=== PATIENT | male | born 1955 | race Caucasian/White ===

== ENCOUNTER → 2016-08-22 | Outpatient (CLI) | payer OTHER ==
[~2016-08-22] MED LIST: ALBUT/IPRATROP 3MG/0.5MG NEB 3 ML VIAL INH ONE; AMLO10TA2 PO; ASPI81TA28 PO; ATOR-26 PO; CARV25TA2 PO; CLOP1TAB15 PO; DICL1GEL12 TOP; FURO-85 PO; HYDR-4079 PO; HYDROCODONE APAP PO; LISI-725 PO; TEMA30CA4 PO
--- NOTE | 2016-08-22 09:29 | DIAGNOSTIC IMAGING REPORT ---
MRI LEFT SHOULDER NO CONTRAST CLINICAL HISTORY: L SHOULDER PAIN COMPARISON STUDY: No previous studies for comparison. FINDINGS: Imaging was performed the sagittal, coronal, and axial planes. There are no areas of marrow replacement to indicate occult fracture or neoplasm. There is a joint effusion with several loose bodies. There are postsurgical changes of a presumed prior rotator cuff repair. Soft tissue anchors are visualized within the humeral head. There is moderate ferromagnetic artifact. The bicipital tendon appears intact. There is supraspinatus tendinopathy. There is a full-thickness tear of the supraspinatus/infraspinatus tendinous insertion. There is a slight wavy appearance of the supraspinous tendon but significant tendinous retraction is not present. There is infraspinatus muscular atrophy. There is degenerative irregularity of the glenoid labrum. IMPRESSION: Full-thickness rotator cuff tear with atrophy of the infraspinatus muscle. No evidence of significant tendinous retraction. Postsurgical changes with extensive ferromagnetic artifact. Electronically signed by: Al Mcpherson M.D. 08/22/2016 9:27 AM Dictated Date/Time: 08/22/2016 9:18 AM
== END | disposition home or self-care (01) ==
LOC: C.MRIBC 08:15
PROVIDERS: ATTEND Orthopaedic Surgery
DX: M75.102 Unspecified rotator cuff tear or rupture of left shoulder, not specified as traumatic (principal); M62.512 Muscle wasting and atrophy, not elsewhere classified, left shoulder

== ENCOUNTER → 2016-08-22 | Outpatient (CLI) | payer OTHER ==
[~2016-08-22] VITALS: Ht 157.5 cm; Wt 84.2 kg
[~2016-08-22] MED LIST changes: -ALBUT/IPRATROP 3MG/0.5MG NEB 3 ML VIAL INH ONE
[2016-08-22 13:40] VITALS: Ht 157.5 cm; Wt 84.2 kg
--- NOTE | 2016-08-22 14:29 | PAT Medication Instructions ---
Service Date Aug 22, 2016. 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 Instructions For Your Scheduled Surgery - Instructions per Cardiology: Clopidogrel (Plavix), 75 MG PO QAM Per pt, last dose taken 08/19/16 - Hold the following medications 24 hours prior to surgery: Diclofenac Sodium (Topical) (Voltaren 1% Top Gel), 1 DOSE TOP DAILY - Take the following medications the morning of surgery with a sip of water OTHERWISE NOTHING TO EAT OR DRINK AFTER MIDNIGHT: Aspirin (Aspirin Ec), 81 MG PO QAM Carvedilol (Coreg), 25 MG PO BID [Hydrocodone Apap], 1 TAB PO QID PRN (may take if needed up to 4 hours prior to surgery) - Take the following medications as scheduled the night before surgery: Temazepam (Restoril), 30 MG PO HS Atorvastatin (Lipitor), 80 MG PO HS Furosemide (Lasix), 20 MG PO QPM Carvedilol (Coreg), 25 MG PO BID [Hydrocodone Apap], 1 TAB PO QID PRN - Do Not take the following medications the night before surgery: Lisinopril (Zestril), 20 MG PO QPM If you have any questions please call us at [phone] or [phone] or [phone]
[2016-08-22 14:50] LABS: BASO % 0.3 %; BASO ABS # 0.02 K/uL (0-0.2); COMPLETE YES; EOS % 1.6 %; HEMATOCRIT 36.1 % (42-52); IG% 0.2 %; LYMPH % 21.1 %; LYMPH ABS # 1.22 K/uL (1.2-3.4); MEAN CELL VOLUME 87.4 fL (80-100); MEAN CORPUSCULAR HEMOGLOBIN 30.3 pg (25-34); MEAN CORPUSCULAR HGB CONC 34.6 g/dl (32-36); MEAN PLATELET VOLUME 9.2 fL (7.4-10.4); MONO % 7.5 %; NEUT % 69.3 %; PLATELET COUNT 183 K/uL (130-400); RED BLOOD COUNT 4.13 M/uL (4.7-6.1); WHITE BLOOD COUNT 5.77 K/uL (4.8-10.8)
[2016-08-22 15:03] LABS: BUN/CREATININE RATIO 11.3 (10-20); CALCIUM 8.7 mg/dl (8.5-10.1); CREATININE 1.4 mg/dl (0.60-1.40); POTASSIUM 3.6 mmol/L (3.5-5.1)
[2016-08-22 15:25] LABS: PARTIAL THROMBOPLASTIN RATIO 1.1; PROTHROMBIN TIME (PATIENT) 10.9 SECONDS (9.0-12.0)
== END | disposition home or self-care (01) ==
LOC: C.LAB 08:00 → EDSTATUS 08-26 14:44
PROVIDERS: ATTEND Orthopaedic Surgery
DX: M75.102 Unspecified rotator cuff tear or rupture of left shoulder, not specified as traumatic (principal); Z01.812 Encounter for preprocedural laboratory examination; Z01.810 Encounter for preprocedural cardiovascular examination

== ENCOUNTER 2017-01-13 06:14 | Inpatient (IN) | payer OTHER ==
[2016-11-28 10:22] VITALS: BMI 31.0
[2016-11-28 10:25] LABS: BASO % 0.6 %; BASO ABS # 0.04 K/uL (0-0.2); COMPLETE YES; EOS % 1.8 %; HEMATOCRIT 38.2 % (42-52); IG% 0.2 %; LYMPH % 26.9 %; LYMPH ABS # 1.66 K/uL (1.2-3.4); MEAN CELL VOLUME 87.8 fL (80-100); MEAN CORPUSCULAR HEMOGLOBIN 30.1 pg (25-34); MEAN CORPUSCULAR HGB CONC 34.3 g/dl (32-36); MEAN PLATELET VOLUME 9.5 fL (7.4-10.4); MONO % 7.6 %; NEUT % 62.9 %; PLATELET COUNT 161 K/uL (130-400); RED BLOOD COUNT 4.35 M/uL (4.7-6.1); WHITE BLOOD COUNT 6.17 K/uL (4.8-10.8)
[2016-11-28 10:36] LABS: PARTIAL THROMBOPLASTIN RATIO 1.1; PROTHROMBIN TIME (PATIENT) 10.8 SECONDS (9.0-12.0)
[2016-11-28 10:42] LABS: URINE APPEARANCE CLEAR (CLEAR); URINE BILIRUBIN NEG (NEG); URINE COLOR YELLOW; URINE NITRITE NEG (NEG); URINE PH 5.5 (4.5-7.5); UROBILINOGEN NEG (NEG)
[2016-11-28 10:43] LABS: MANUAL MICROSCOPIC REQUIRED? NO; REVIEW REQ? NO
--- NOTE | 2016-11-28 10:54 | PAT Medication Instructions ---
Service Date Nov 28, 2016. Current Home Medication List Aspirin (Aspirin Ec), 81 MG PO QAM Atorvastatin (Lipitor), 80 MG PO HS Carvedilol (Coreg), 25 MG PO BID Clopidogrel (Plavix), 75 MG PO QAM Diclofenac Sodium (Topical) (Voltaren 1% Top Gel), 1 DOSE TOP DAILY PRN for Pain Furosemide (Lasix), 20 MG PO QAM Hydrocodone/Acetaminophen 10MG/325MG ([place] 10MG/325MG), 1 TAB PO Q4H PRN for Pain Lisinopril (Zestril), 20 MG PO BID Temazepam (Restoril), 30 MG PO HS Medication Instructions For Your Scheduled Surgery - Hold the following medications 7 days prior to surgery as instructed by Cardiology: Clopidogrel (Plavix), 75 MG PO QAM - Hold the following medications 24 hours prior to surgery: Lisinopril (Zestril), 20 MG PO BID Diclofenac Sodium (Topical) (Voltaren 1% Top Gel), 1 DOSE TOP DAILY PRN for Pain - Hold the following medications the morning of surgery: Furosemide (Lasix), 20 MG PO QAM - Take the following medications the morning of surgery with a sip of water: Carvedilol (Coreg), 25 MG PO BID Aspirin (Aspirin Ec), 81 MG PO QAM Hydrocodone/Acetaminophen 10MG/325MG ([place] 10MG/325MG), 1 TAB PO Q4H PRN for Pain (may take if needed up to 4 hours prior to surgery) - Take the following medications as scheduled the night before surgery: Carvedilol (Coreg), 25 MG PO BID Temazepam (Restoril), 30 MG PO HS Hydrocodone/Acetaminophen 10MG/325MG ([place] 10MG/325MG), 1 TAB PO Q4H PRN for Pain Atorvastatin (Lipitor), 80 MG PO HS If you have any questions please call us at [phone] or [phone] or [phone]
[2016-11-28 12:36] LABS: BUN/CREATININE RATIO 12.4 (10-20); CREATININE 1.4 mg/dl (0.60-1.40); POTASSIUM 3.9 mmol/L (3.5-5.1)
--- NOTE | 2017-01-12 08:28 | HISTORY & PHYSICAL EXAMINATION ---
DATE OF ADMISSION: 01/13/2017 CHIEF COMPLAINT: Left recurrent rotator cuff tear. HISTORY PRESENT ILLNESS: Anant is a pleasant 61-year-old male who has been having left shoulder pain for over a year. He was originally treated by Dr. Cheng a year ago. He had an open rotator cuff repair, but since then has not done well with regards to his shoulder. He continues to have pain, discomfort and weakness. Repeat MRI did show possible re-rupture of the infraspinatus as well as biceps tendinitis and AC joint arthritis. After failing extensive conservative treatment, he elected to undergo a revision shoulder surgery. He has also been complaining of a several month history of triggering of his left ring finger. It mostly triggers in the morning and it can become quite bothersome. PAST MEDICAL HISTORY: Significant for heart disease, hypertension. PAST SURGICAL HISTORY: Significant for cardiac stent placement and left shoulder open rotator cuff repair a year ago and elbow surgery. ALLERGIES: None. MEDICATIONS: Include hydrochlorothiazide daily, lisinopril 20 mg twice a day, hydrocodone as needed for pain, atorvastatin 80 mg daily, temazepam 30 mg at bedtime, Plavix 75 mg daily, carvedilol 25 mg daily, Lyrica 75 mg twice a day, Lasix 20 mg daily. FAMILY HISTORY: Noncontributory. SOCIAL HISTORY: He is , never drinks. He has a 55 year history of a pack a day. REVIEW OF SYSTEMS: He complains of left shoulder pain. All other pertinent review of systems are negative. PHYSICAL EXAMINATION: GENERAL: Awake, alert and oriented x3. He is in no apparent distress. He is very pleasant. HEAD, EYES, EARS, NOSE, AND THROAT: Pupils equal, round and reactive to light. Extraocular motions are intact. Oral mucosa is pink and moist. HEART: Regular rate per radial pulse. LUNGS: [place] symmetrically bilaterally with no audible breath sounds. ABDOMEN: Soft, nontender, nondistended. MUSCULOSKELETAL: On physical examination of the shoulder, he wears a sling because of the pain. He has decreased range of motion with about 80 degrees of forward elevation, 60 degrees of abduction. He has 4/5 strength with full can testing and 3/5 strength with external rotation, pain over the subacromial space and over the biceps as well as significant tenderness over the AC joint. He is also having some triggering of his left ring finger. IMAGING: MRI of the shoulder does show a possible re-rupture of the infraspinatus tendon. There is also arthritis of the AC joint and tendinopathy of the long head of the biceps tendon. IMPRESSION: 1. Re-rupture of the infraspinatus with AC joint arthritis and biceps tendinopathy of the left shoulder. 2. Left ring finger triggering. PLAN: Will proceed with a left shoulder arthroscopy to include possible revision cuff repair, distal clavicle resection and open biceps tenodesis. Will also do a small left trigger finger release. Postoperatively, he will be placed in an arm sling and started on some pain medications and discharged to home.
[~2017-01-13] VITALS: Ht 160 cm; Wt 80.2 kg
[2017-01-13] VITALS (17 sets, daily range): BP systolic 149–206; BP diastolic 88–134; PULSE 52–84; TEMP 36.4–36.9; O2SAT 94–100; Ht 160 cm; Wt 80.2 kg
[~2017-01-13 06:14] MED LIST changes: +ACETAMINOPHEN 500 MG TAB PO SCH; -AMLO10TA2 PO; +CEFAZOLIN 2000 MG/60 ML D5W 60 ML IV SCH; -HYDROCODONE APAP PO; +LACTATED RINGER'S 1000ML 1,000 ML IV SCH
--- NOTE | 2017-01-13 06:43 | History & Physical Bridge Note ---
H&P Re-Evaluation Bridge Note: I have examined the patient, reviewed the History & Physical and in the interval since the performance of the History & Physical I have noted the following changes of clinical significance: No changes noted
[2017-01-13] MEDS ORDERED: ROPIVACAINE 0.5% 5 MG/ML 30 ML VIAL ONE (07:15)
[2017-01-13] MEDS ORDERED: MIDAZOLAM HCL 1 MG/ML 2ML VIAL ONE ×2 (08:09→09:05)
[2017-01-13] MEDS ORDERED: FENTANYL CITRATE INJ 50 MCG/1 ML 2 ML VIAL ONE ×2 (08:09→09:05)
[2017-01-13] MEDS ORDERED: ALBUT/IPRATROP 3MG/0.5MG NEB 3 ML VIAL INH ONE (09:00)
[2017-01-13] MEDS ORDERED: EpHEDrine SULFATE INJ 50 MG/ML AMP IV PRN (09:15)
[2017-01-13] MEDS ORDERED: FENTANYL CITRATE INJ 50 MCG/1 ML 2 ML VIAL IV PRN (09:15)
[2017-01-13] MEDS ORDERED: ONDANSETRON INJ 2 MG/ML 2 ML VIAL IV PRN ×3 (09:15→14:15)
[2017-01-13] MEDS ORDERED: ACETAMINOPHEN 1000 MG/100 ML IV IV ONE (09:15)
[2017-01-13] MEDS ORDERED: ATROPINE SULFATE 0.1 MG/ML 5ML SYR IV PRN (09:15)
[2017-01-13] MEDS ORDERED: BUPIVACAINE/EPINEPHRINE 0.5% MPF 1:200,000 10 ML VIAL ONE ×2 (09:32)
[2017-01-13] MEDS ORDERED: EpINEphrine HCL INJ 1 MG/ML 5ML SYRINGE ONE (09:32)
[2017-01-13] MEDS ORDERED: ETOMIDATE 2 MG/ML 20 ML VIAL IV ONE (09:57)
[2017-01-13] MEDS ORDERED: ROCURONIUM BROMIDE 10 MG/ML 5 ML VIAL IV ONE (11:03)
[2017-01-13] MEDS ORDERED: GLYCOPYRROLATE INJ 0.2 MG/ML VIAL ONE (11:04)
[2017-01-13] MEDS ORDERED: NEOSTIGMINE METHYLSULFATE 5 MG/5 ML SYR ONE (11:04)
[2017-01-13] MEDS ORDERED: SODIUM CHLORIDE 0.9% 1000ML 1,000 ML IV SCH (11:49)
--- NOTE | 2017-01-13 11:49 | Discharge Instructions ---
Discharge Instructions Date of Service Jan 13, 2017. Admission Reason for Admission: Left Shoulder Rotator Cuff Tear, Ac Joint Arthriti Discharge Discharge Diagnosis / Problem: SAME ABOVE Discharge Goals Goal(s): Decrease discomfort, Improve function Activity Recommendations Activity Limitations: as noted below Lifting Limitations: gradually increase as tolerated Exercise/Sports Limitations: gradually increase as tolerated Shower/Bathe: tomorrow Driving or Machine Use: ONCE OUT OF THE SLING . Instructions / Follow-Up Instructions / Follow-Up MEDICATIONS: * Resume previous medications unless instructed otherwise by your surgeon. * Always take pain medication on a full stomach or with food to avoid upset stomach. * Do not drink alcohol or drive while taking narcotics. * Ibuprofen or Tylenol may be taken if narcotic not needed. SPECIAL CARE INSTRUCTIONS: __ None _X_ Keep extremity elevated and iced x 48 hours; apply ice 20-30 minutes 8-10 times/day. May remove at night. _X_ Sling (WEAR FOR COMFORT ONLY) __24 hrs/day __ Remove at night __ Shoulder Immobilizer __ 24 hrs/day __ Remove at night _X_ Dressing __ Maintain until seen in office, may shower with plastic over site _X_ Remove dressings in 24-48 hours and then may shower _X_ Cover incisions with band-aids after showering _X_ Do not remove steri-strips Call physician if chills or temperature rises above 102 degrees or pain unrelieved by prescribed pain medications at . . Current Hospital Diet Patient's current hospital diet: Discharge Diet Recommended Diet: Regular Diet Fluid Restriction: None Procedures Procedures Performed: Trigger Finger Release Left Ring Finger (Procedure #1), Left Shoulder: Arthroscopy, Extensive Debridement, Open biceps tenodesis (Procedure #2) Pending Studies Studies pending at discharge: no Work Instructions Return To Work: after follow-up Medical Emergencies . Who to Call and When: Medical Emergencies: If at any time you feel your situation is an emergency, please call 911 immediately. . Non-Emergent Contact Non-Emergency issues call your: Primary Care Provider Call Non-Emergent contact if: you have a fever, temperature is above 101.5 . "Provider Documentation" section prepared by Dylan Charles. . VTE Core Measure Inpt VTE Proph given/why not?: Treatment not indicated
--- NOTE | 2017-01-13 11:59 | OPERATIVE REPORT ---
DATE OF OPERATION: 01/13/2017 PREOPERATIVE DIAGNOSES: 1. Scar tissue formation, biceps tendinopathy and possible re-rupture of the rotator cuff. 2. Triggering of the left ring finger. POSTOPERATIVE DIAGNOSES: 1. Extensive subacromial scar tissue formation and biceps tendinopathy of the left shoulder. 2. Triggering of the left ring finger. PROCEDURE: Left shoulder diagnostic arthroscopy with extensive debridement and open subpectoral biceps tenodesis and open left trigger finger release. SURGEON: Dr. Raheem Knox. PATIENT SAFETY ATTENDANT: Delroy Charles PA-C, whose assistance was necessary for positioning the arm and helping with instrumentation. ANESTHESIA: General with a left interscalene nerve block. COMPLICATIONS: None. CONDITION: Stable to PACU. INDICATIONS: Anant is a very pleasant 61-year-old male who is a heavy smoker. He underwent an open rotator cuff repair at an outside institution about a year ago. Since the surgery, he has done very poor. He has had global pain in his shoulder. He has had pain over the AC joint and severe pain in the subacromial space. MRI was inconclusive for re-rupture rotator cuff but showed severe scar tissue formation. He elected to undergo arthroscopy. DESCRIPTION OF PROCEDURE: On 01/13/2017, he arrived at [facility] for the above procedure. He was seen in the preoperative holding area and the operative extremity was identified and signed, given preoperative antibiotic and a left interscalene nerve block. He was taken back to the operating room, laid on the table in supine position and put under general anesthesia. He was then put into the beachchair position. The left shoulder was prepped and draped in sterile fashion. Time-out was done and the patient and operative extremity was properly identified. A scope was introduced in the posterior portal. Diagnostic arthroscopy showed some cartilage damage within the superior aspect of the glenoid. There was no cartilage damage on the humeral head. There was some fraying of the labrum. The biceps tendon was very red and inflamed, but not torn. The rotator cuff repair seemed completely intact and the cuff seems intact from the articular side. An anterior portal was made. A shaver was used to do a debridement of the intraarticular structures. The rotator interval was opened all the way underneath the coracoid and the biceps tendon was arthroscopically tenotomized. The scope was then put into the subacromial space, there was a significant amount of adhesions and scar tissue formation. A lateral portal was made, a shaver was used to do an extensive debridement of all the adhesions and a complete subacromial and subdeltoid bursectomy and release, lysis of adhesions. Time was spent removing all adhesions around the AC joint as well, looked like there was an appropriate resection from the previous procedure. The shoulder was brought through a full range of motion and the rotator cuff was freed up. There was no evidence of bursal sided tears. Multiple pictures were taken. There appeared to be in appropriate acromioplasty from the previous procedure. No revision acromioplasty was needed. Decision was made to do an open biceps tenodesis. A small incision was made over the inferior border of the pec major. Dissection was taken down through the fascia and the long head of the biceps tendon was pulled out of the wound. The tendon was then whip stitched at the anticipated level of tenodesis and the remainder of the tendon was discarded. A 6 mm hole was drilled in the bicipital groove and the biceps tendon was tenodesed with an Arthrex biceps button which was passed through the posterior cortex in a tension slide technique to deliver the tendon into the 6 mm hole. This gave good fixation. The wound was then irrigated and closed with 3-0 Vicryl and running 3-0 Monocryl. Steri-strips were placed. Portal sites were closed with 3-0 nylon. He was then placed in a soft dressing. Attention was then turned to trigger finger release. The hand was prepped and draped in sterile fashion. A small incision was made over the A1 julianna at the left ring finger. Dissection was taken down to the A1 julianna which was easily visualized. A knife and tenotomy scissors were then used to completely release the A1 julianna. The tendon was then pulled out of the wound to ensure complete release. The wound was then irrigated and closed with 4-0 nylon sutures. He was then placed in a soft dressing. He was then extubated, transferred to a litter and taken to the postanesthesia care unit in stable condition. He tolerated the procedure well. I attest to the content of the Intraoperative Record and any orders documented therein. Any exception s are noted below.
[2017-01-13] MEDS ORDERED: HYDROCODONE/ACETAMOPHEN 5/325MG TAB PO PRN ×2 (12:00)
[2017-01-13] MEDS ORDERED: HydrALAZINE HCL 20 MG/ML VIAL ONE (12:44)
[2017-01-13] MEDS: HYDROmorphone INJ 1 MG/ML SYR IV PRN ×2 (12:52→13:05)
[2017-01-13] MEDS ORDERED: ALBUT/IPRATROP 3MG/0.5MG NEB 3 ML VIAL INH STA (13:08)
--- NOTE | 2017-01-13 14:00 | Anesthesiology Progress Note ---
Anesthesia Post Op Note Date & Time Jan 13, 2017 at 13:58 Vital Signs Pain Intensity: 3 Vital Signs Past 12 Hours Date Time Temp Pulse Resp B/P (MAP) Pulse Ox O2 Delivery O2 Flow Rate FiO2 01/13/17 13:50 36.6 66 22 138/85 (116) 98 Room Air 3 01/13/17 13:47 65 19 98 01/13/17 13:47 65 19 01/13/17 13:46 151/80 01/13/17 13:45 22 01/13/17 13:45 71 22 01/13/17 13:41 148/71 01/13/17 13:40 65 11 01/13/17 13:40 66 11 95 01/13/17 13:36 149/81 01/13/17 13:35 74 10 01/13/17 13:35 73 10 96 01/13/17 13:31 155/81 01/13/17 13:30 72 20 97 01/13/17 13:30 76 20 01/13/17 13:29 68 18 98 Room Air 01/13/17 13:26 184/83 01/13/17 13:25 73 13 98 01/13/17 13:25 73 13 01/13/17 13:20 67 14 01/13/17 13:20 66 14 171/95 01/13/17 13:16 172/97 01/13/17 13:15 69 19 97 01/13/17 13:15 64 19 01/13/17 13:10 14 01/13/17 13:10 54 14 180/112 01/13/17 13:07 187/85 01/13/17 13:06 169/104 01/13/17 13:05 63 17 01/13/17 13:05 61 17 01/13/17 13:01 171/95 01/13/17 13:00 68 14 01/13/17 13:00 61 14 71 01/13/17 12:56 171/99 01/13/17 12:55 56 15 01/13/17 12:55 57 15 100 01/13/17 12:50 56 23 183/98 98 01/13/17 12:50 57 23 01/13/17 12:46 188/89 01/13/17 12:45 51 9 01/13/17 12:45 52 9 95 8/18/17 12:41 181/92 8/18/17 12:40 59 12 96 8/18/17 12:40 53 12 8/18/17 12:36 174/81 8/18/17 12:35 53 23 8/18/17 12:35 58 23 96 8/18/17 12:31 172/80 8/18/17 12:30 56 12 97 8/18/17 12:30 55 12 8/18/17 12:29 45 10 171/94 98 8/18/17 12:29 46 10 8/18/17 12:29 45 10 171/94 98 8/18/17 12:29 46 10 8/18/17 12:25 184/105 8/18/17 12:25 184/105 8/18/17 12:24 60 19 94 8/18/17 12:24 60 19 94 8/18/17 12:24 59 19 8/18/17 12:24 59 19 8/18/17 12:20 186/96 8/18/17 12:20 186/96 8/18/17 12:19 47 4 8/18/17 12:19 47 4 8/18/17 12:19 46 4 91 8/18/17 12:19 46 4 91 8/18/17 12:16 180/100 8/18/17 12:16 180/100 8/18/17 12:14 48 5 99 8/18/17 12:14 48 5 8/18/17 12:14 48 5 8/18/17 12:14 48 5 99 8/18/17 12:11 180/106 8/18/17 12:11 180/106 8/18/17 12:09 57 26 8/18/17 12:09 57 26 8/18/17 12:09 57 26 100 8/18/17 12:09 57 26 100 8/18/17 12:05 183/123 8/18/17 12:05 183/123 8/18/17 12:04 57 25 100 8/18/17 12:04 57 25 8/18/17 12:04 57 25 100 8/18/17 12:04 57 25 8/18/17 12:00 183/95 8/18/17 12:00 183/95 8/18/17 11:59 57 14 100 8/18/17 11:59 57 14 818/17 11:59 57 14 100 01/13/17 11:59 57 14 01/13/17 11:56 185/99 01/13/17 11:56 185/99 01/13/17 11:54 69 01/13/17 11:54 69 97 01/13/17 11:54 69 01/13/17 11:54 69 97 01/13/17 11:51 186/109 01/13/17 11:51 186/109 01/13/17 11:49 72 01/13/17 11:49 72 01/13/17 11:49 72 175/95 98 01/13/17 11:49 72 175/95 98 01/13/17 11:49 36.0 71 20 175/95 (116) 97 Mask 10 01/13/17 09:06 52 18 98 Room Air 01/13/17 06:59 97 Room Air 01/13/17 06:46 36.7 63 20 149/88 (108) 97 Room Air Notes Mental Status: alert / awake / arousable, participated in evaluation Pt Amnestic to Procedure: Yes Nausea / Vomiting: adequately controlled Pain: adequately controlled Airway Patency, RR, SpO2: stable & adequate BP & HR: stable & adequate Hydration State: stable & adequate Anesthetic Complications: no major complications apparent Pt doing better after bladder was emptied. BP better. Pain controlled. VSS
--- NOTE | 2017-01-13 14:10 | [facility] Post Operative Brief Note ---
Immediate Operative Summary Operative Date Jan 13, 2017. Pre-Operative Diagnosis Left Ring Finger Triggering; Re-Rupture of the Infraspinatus with Acromioclavicular Joint Arthritis and Biceps Tendinopathy Left Shoulder Post-Operative Diagnosis Left Ring Finger Triggering; Re-Rupture of the Infraspinatus with Acromioclavicular Joint Arthritis and Biceps Tendinopathy Left Shoulder Procedure(s) Performed Trigger Finger Release Left Ring Finger (Procedure #1), Left Shoulder: Arthroscopy, Extensive Debridement, Open biceps tenodesis (Procedure #2) Surgeon Dr. Knox Grade And Center Marker Surgeon(s) CLAUDIA Ludwig Estimated Blood Loss 5cc Findings as above Specimens none per surgeon Complication(s) None Disposition Recovery Room / PACU
[2017-01-13] MEDS ORDERED: METOCLOPRAMIDE HCL INJ 5 MG/ML 2 ML VIAL IV PRN (14:15)
[2017-01-13] MEDS ORDERED: MoRPHine SULFATE 2 MG/ML CARP IV PRN (14:15)
[2017-01-13] MEDS ORDERED: HYDROCODONE/ACETAMI 10/325 TAB PO PRN (14:15)
[2017-01-13] MEDS ORDERED: NALOXONE HCL 0.4 MG/1 ML VIAL/CARP IV PRN (14:15)
[2017-01-13] MEDS ORDERED: HydrALAZINE HCL 20 MG/ML VIAL IV. ONE (15:30)
[2017-01-13] MEDS: POTASSIUM CHLORIDE INJ 10 MEQ in SODIUM CHLORIDE 0.9% 1000ML 1,000 ML IV SCH ×2 (15:34→23:39)
[2017-01-13] MEDS ORDERED: MoRPHine SULFATE 4 MG/ML 1 ML CARP\\VIAL IV PRN (16:15)
[2017-01-13] MEDS ORDERED: OXYCODONE HCL IR 5 MG TAB (IMMEDIATE RELEASE) PO PRN (16:15)
[2017-01-13] MEDS ORDERED: HYDROmorphone INJ 0.5 MG/0.5 ML SYR IV STA (16:41)
[2017-01-13] MEDS ORDERED: HYDROmorphone INJ 1 MG/ML SYR IV PRN (16:45)
--- NOTE | 2017-01-13 17:00 | History and Physical ---
History & Physical Date & Time of Service: Jan 13, 2017 at 16:56 Chief Complaint: Left Shoulder Rotator Cuff Tear, Ac Joint Arthriti Primary Care Physician: Tor Soares PA-C History of Present Illness Patient status post left shoulder injury with revision surgery is to repeat surgery. Postoperatively's hypertensive as having chills. Patient does not admit to missing his medications however he does admit to having significant difficulty controlling his blood pressure as an outpatient. Medications help preoperatively has been his Plavix. The patient has known coronary artery disease however he has had a stent 1 year ago and has had no anginal symptoms and that time His blood pressures been challenging over the last few hours to control. Family History He also has family history of difficult to control hypertension Social History Smoking Status: Current Every Day Smoker Allergies Coded Allergies: No Known Allergies (Unverified , 11/28/16) Home Medications Scheduled Aspirin (Aspirin Ec), 81 MG PO QAM Atorvastatin (Lipitor), 80 MG PO HS Carvedilol (Coreg), 25 MG PO BID Clopidogrel (Plavix), 75 MG PO QAM Furosemide (Lasix), 20 MG PO QAM Lisinopril (Zestril), 20 MG PO BID Temazepam (Restoril), 30 MG PO HS Scheduled PRN Diclofenac Sodium (Topical) (Voltaren 1% Top Gel), 1 DOSE TOP DAILY PRN for Pain Hydrocodone/Acetaminophen 10MG/325MG ([place] 10MG/325MG), 1 TAB PO Q4H PRN for Pain Review of Systems ROS: well nourished well developed having chills postoperatively No double vision blurry vision No problems with speech or swallowing No palpitations, chest pain or pressure No Wheezing or breathing issues No abdominal pain nausea vomiting diarrhea changes in appetite or weight No burning urine urine frequency or changes in color His left shoulder is painful rating to his neck No skin rashes or oral lesions No unusual bruising or bleeding No focused back pain or numbness or loss of strength No changes in memory or confusion Physical Exam Vital Signs Date Time Temp Pulse Resp B/P (MAP) Pulse Ox O2 Delivery O2 Flow Rate FiO2 01/13/17 16:20 36.4 79 18 206/134 (158) 100 Nasal Cannula 4.0 01/13/17 15:21 36.4 62 17 198/114 (142) 98 Nasal Cannula 4.0 8/18/17 14:50 69 19 178/106 (130) 100 Nasal Cannula 5.0 18/17 14:31 98 Nasal Cannula 4.0 18/17 14:20 36.5 82 22 185/99 (127) 98 Nasal Cannula 4.0 188/110 (136) 1817 14:20 Nasal Cannula 4.0 18/17 14:08 64 17 98 818/17 14:08 61 17 18/17 14:05 133/66 18/17 14:03 64 20 818/17 14:03 69 20 100 18/17 14:00 136/74 818/17 13:58 70 25 98 18/17 13:58 69 25 18/17 13:55 137/63 18/17 13:53 66 22 98 /18/17 13:53 65 22 818/17 13:50 36.6 66 22 138/85 (116) 98 Room Air 3 01/13/17 13:50 138/85 18/17 13:48 61 19 97 18/17 13:48 63 19 818/17 13:47 65 19 98 8/18/17 13:47 65 19 /18/17 13:46 151/80 818/17 13:45 22 18/17 13:45 71 22 8/18/17 13:41 148/71 8/18/17 13:40 65 11 8/18/17 13:40 66 11 95 18/17 13:36 149/81 818/17 13:35 74 10 18/17 13:35 73 10 96 18/17 13:31 155/81 818/17 13:30 72 20 97 8/18/17 13:30 76 20 8/18/17 13:29 68 18 98 Room Air 01/13/17 13:26 184/83 818/17 13:25 73 13 98 8/18/17 13:25 73 13 8/18/17 13:20 67 14 8/18/17 13:20 66 14 171/95 8/18/17 13:16 172/97 8/18/17 13:15 69 19 97 818/17 13:15 64 19 8/18/17 13:10 14 8/18/17 13:10 54 14 180/112 8/18/17 13:07 187/85 8/18/17 13:06 169/104 8/18/17 13:05 63 17 8/18/17 13:05 61 17 8/18/17 13:01 171/95 8/18/17 13:00 68 14 8/18/17 13:00 61 14 71 8/18/17 12:56 171/99 8/18/17 12:55 56 15 8/18/17 12:55 57 15 100 8/18/17 12:50 56 23 183/98 98 8/18/17 12:50 57 23 8/18/17 12:46 188/89 8/18/17 12:45 51 9 8/18/17 12:45 52 9 95 8/18/17 12:41 181/92 8/18/17 12:40 59 12 96 8/18/17 12:40 53 12 8/18/17 12:36 174/81 8/18/17 12:35 53 23 8/18/17 12:35 58 23 96 8/18/17 12:31 172/80 8/18/17 12:30 56 12 97 8/18/17 12:30 55 12 8/18/17 12:29 45 10 171/94 98 8/18/17 12:29 46 10 8/18/17 12:29 45 10 171/94 98 8/18/17 12:29 46 10 8/18/17 12:25 184/105 8/18/17 12:25 184/105 8/18/17 12:24 60 19 94 8/18/17 12:24 60 19 94 8/18/17 12:24 59 19 8/18/17 12:24 59 19 8/18/17 12:20 186/96 8/18/17 12:20 186/96 8/18/17 12:19 47 4 8/18/17 12:19 47 4 8/18/17 12:19 46 4 91 8/18/17 12:19 46 4 91 8/18/17 12:16 180/100 8/18/17 12:16 180/100 8/18/17 12:14 48 5 99 8/18/17 12:14 48 5 8/18/17 12:14 48 5 8/18/17 12:14 48 5 99 01/13/17 12:11 180/106 01/13/17 12:11 180/106 01/13/17 12:09 57 26 01/13/17 12:09 57 26 01/13/17 12:09 57 26 100 01/13/17 12:09 57 26 100 01/13/17 12:05 183/123 01/13/17 12:05 183/123 01/13/17 12:04 57 25 100 01/13/17 12:04 57 25 01/13/17 12:04 57 25 100 01/13/17 12:04 57 25 01/13/17 12:00 183/95 01/13/17 12:00 183/95 01/13/17 11:59 57 14 100 01/13/17 11:59 57 14 01/13/17 11:59 57 14 100 01/13/17 11:59 57 14 01/13/17 11:56 185/99 01/13/17 11:56 185/99 01/13/17 11:54 69 01/13/17 11:54 69 97 01/13/17 11:54 69 01/13/17 11:54 69 97 01/13/17 11:51 186/109 01/13/17 11:51 186/109 01/13/17 11:49 72 01/13/17 11:49 72 01/13/17 11:49 72 175/95 98 01/13/17 11:49 72 175/95 98 01/13/17 11:49 36.0 71 20 175/95 (116) 97 Mask 10 01/13/17 09:06 52 18 98 Room Air 01/13/17 06:59 97 Room Air 01/13/17 06:46 36.7 63 20 149/88 (108) 97 Room Air General Appearance: WD/WN, + moderate distress Eyes: PERRL, EOMI Neck: supple, no JVD Respiratory/Chest: chest non-tender, lungs clear, normal breath sounds Cardiovascular: regular rate, rhythm, no murmur Abdomen/GI: normal bowel sounds, non tender, soft Back: no muscle spasm, normal range of motion Neurologic/Psych: alert, oriented x 3 Skin: normal color, warm/dry, no rash Impression Assessment and Plan 61-year-old male with history coronary disease and difficult to control hypertension status post left shoulder surgery For his hypertension his maintained on lisinopril 20 twice a day Coreg 25 twice a day Lasix 20 a day hydrochlorothiazide. We'll use hydralazine when necessary for blood pressure control and more so attempt to control his pain as a means to control his hypertension. Typically we'll hold CATHERINE inhibitor is postoperative day one the lability is- blood pressure makes it likely he'll need this medication For dyslipidemia and secondary cardiac risk prevention will continue atorvastatin and consider reinstituting Plavix as soon as orthopedic believes it 's possible DVT prevention is early ambulation Advanced Directives Existing Living Will: No Existing Power of Tufting Machine Fixer: No VTE Prophylaxis VTE Risk Assessment Done? Y/N: No Risk Level: Low Given or contraindicated: Treatment not indicated
[2017-01-13] MEDS ORDERED: HYDROmorphone INJ 0.5 MG/0.5 ML SYR ONE (17:52)
[2017-01-13] MEDS: CARVEDILOL 25 MG TAB PO SCH (18:00)
[2017-01-13] MEDS: HYDROmorphone INJ 0.5 MG/0.5 ML SYR IV PRN (19:11)
[2017-01-13] MEDS: HydrALAZINE HCL 20 MG/ML VIAL IV PRN ×2 (19:21→23:48)
[2017-01-13] MEDS: LISINOPRIL 20 MG TAB PO SCH (20:32)
[2017-01-13] MEDS ORDERED: TEMAZEPAM 15 MG CAP PO SCH (21:00)
[2017-01-13] MEDS ORDERED: ATORVASTATIN 40 MG TAB PO SCH (21:00)
[2017-01-13 23:46] LABS: URINE APPEARANCE CLEAR (CLEAR); URINE BILIRUBIN NEG (NEG); URINE COLOR YELLOW; URINE EPITHELIAL CELL AUTO 0-5 /lpf (0-5); URINE NITRITE NEG (NEG); URINE SPECIFIC GRAVITY 1.015 (1.000-1.030); UROBILINOGEN NEG (NEG); ZZURINE CULT IF INDIC CATH NO
[2017-01-13 23:47] LABS: MANUAL MICROSCOPIC REQUIRED? NO; REVIEW REQ? NO
[2017-01-14] MEDS: HYDROmorphone INJ 0.5 MG/0.5 ML SYR IV PRN (02:41)
[2017-01-14 03:30] VITALS: BP 158/76; PULSE 75; TEMP 37.1; O2SAT 96
[2017-01-14 07:00] VITALS: BP 172/81; PULSE 70; TEMP 36.9; O2SAT 98
[2017-01-14] MEDS: CARVEDILOL 25 MG TAB PO SCH (07:37)
[2017-01-14] MEDS: LISINOPRIL 20 MG TAB PO SCH (07:38)
[2017-01-14] MEDS ORDERED: ASPIRIN 81 MG ECTAB PO SCH (09:00)
[2017-01-14] MEDS ORDERED: AMLODIPINE BESYLATE 5 MG TAB PO SCH (09:00)
[2017-01-14] MEDS ORDERED: CLOPIDOGREL BISULFATE 75 MG TAB PO SCH (09:00)
[2017-01-14] MEDS ORDERED: FUROSEMIDE 20 MG TAB PO SCH (09:00)
[2017-01-14 09:08] VITALS: BP 148/83
[2017-01-14] MEDS ORDERED: AMLO10TA2 PO (10:16)
--- NOTE | 2017-01-14 10:40 | Progress Note ---
Subjective Date of Service: Jan 14, 2017. Objective Vital Signs Date Time Temp Pulse Resp B/P (MAP) Pulse Ox O2 Delivery O2 Flow Rate FiO2 01/14/17 09:08 148/83 01/14/17 07:00 36.9 70 18 172/81 (111) 98 Nasal Cannula 3.0 01/14/17 03:30 37.1 75 17 158/76 (103) 96 Nasal Cannula 4.0 01/13/17 23:30 Nasal Cannula 4.0 01/13/17 23:30 172/103 (126) 01/13/17 23:27 36.9 78 18 196/118 (144) 99 Nasal Cannula 4.0 01/13/17 22:00 76 165/91 (115) 01/13/17 20:29 81 182/93 (122) 01/13/17 19:30 177/95 (122) 01/13/17 18:50 36.4 76 18 204/105 (138) 99 Nasal Cannula 4.0 01/13/17 18:03 36.8 84 18 190/113 (138) 94 Nasal Cannula 4.0 01/13/17 16:20 36.4 79 18 206/134 (158) 100 Nasal Cannula 4.0 01/13/17 15:30 98 Nasal Cannula 4.0 01/13/17 15:21 36.4 62 17 198/114 (142) 98 Nasal Cannula 4.0 01/13/17 14:50 69 19 178/106 (130) 100 Nasal Cannula 5.0 01/13/17 14:31 98 Nasal Cannula 4.0 01/13/17 14:20 36.5 82 22 185/99 (127) 98 Nasal Cannula 4.0 188/110 (136) 01/13/17 14:20 Nasal Cannula 4.0 01/13/17 14:08 64 17 98 01/13/17 14:08 61 17 01/13/17 14:05 133/66 01/13/17 14:03 64 20 01/13/17 14:03 69 20 100 01/13/17 14:00 136/74 01/13/17 13:58 70 25 98 01/13/17 13:58 69 25 01/13/17 13:55 137/63 01/13/17 13:53 66 22 98 01/13/17 13:53 65 22 8/18/17 13:50 36.6 66 22 138/85 (116) 98 Room Air 3 18/17 13:50 138/85 8/18/17 13:48 61 19 97 8/18/17 13:48 63 19 8/18/17 13:47 65 19 98 8/18/17 13:47 65 19 8/18/17 13:46 151/80 8/18/17 13:45 22 8/18/17 13:45 71 22 8/18/17 13:41 148/71 8/18/17 13:40 65 11 8/18/17 13:40 66 11 95 8/18/17 13:36 149/81 8/18/17 13:35 74 10 8/18/17 13:35 73 10 96 8/18/17 13:31 155/81 8/18/17 13:30 72 20 97 8/18/17 13:30 76 20 8/18/17 13:29 68 18 98 Room Air 01/13/17 13:26 184/83 818/17 13:25 73 13 98 8/18/17 13:25 73 13 8/18/17 13:20 67 14 8/18/17 13:20 66 14 171/95 8/18/17 13:16 172/97 8/18/17 13:15 69 19 97 8/18/17 13:15 64 19 8/18/17 13:10 14 8/18/17 13:10 54 14 180/112 8/18/17 13:07 187/85 8/18/17 13:06 169/104 8/18/17 13:05 63 17 818/17 13:05 61 17 8/18/17 13:01 171/95 8/18/17 13:00 68 14 8/18/17 13:00 61 14 71 8/18/17 12:56 171/99 8/18/17 12:55 56 15 8/18/17 12:55 57 15 100 8/18/17 12:50 56 23 183/98 98 8/18/17 12:50 57 23 8/18/17 12:46 188/89 8/18/17 12:45 51 9 8/18/17 12:45 52 9 95 8/18/17 12:41 181/92 818/17 12:40 59 12 96 8/18/17 12:40 53 12 8/18/17 12:36 174/81 8/18/17 12:35 53 23 8/18/17 12:35 58 23 96 8/18/17 12:31 172/80 8/18/17 12:30 56 12 97 8/18/17 12:30 55 12 8/18/17 12:29 45 10 171/94 98 8/18/17 12:29 46 10 8/18/17 12:29 45 10 171/94 98 8/18/17 12:29 46 10 8/18/17 12:25 184/105 8/18/17 12:25 184/105 8/18/17 12:24 60 19 94 8/18/17 12:24 60 19 94 8/18/17 12:24 59 19 8/18/17 12:24 59 19 8/18/17 12:20 186/96 8/18/17 12:20 186/96 8/18/17 12:19 47 4 8/18/17 12:19 47 4 8/18/17 12:19 46 4 91 8/18/17 12:19 46 4 91 8/18/17 12:16 180/100 8/18/17 12:16 180/100 8/18/17 12:14 48 5 99 8/18/17 12:14 48 5 8/18/17 12:14 48 5 8/18/17 12:14 48 5 99 8/18/17 12:11 180/106 8/18/17 12:11 180/106 8/18/17 12:09 57 26 8/18/17 12:09 57 26 8/18/17 12:09 57 26 100 8/18/17 12:09 57 26 100 8/18/17 12:05 183/123 8/18/17 12:05 183/123 8/18/17 12:04 57 25 100 8/18/17 12:04 57 25 8/18/17 12:04 57 25 100 8/18/17 12:04 57 25 8/18/17 12:00 183/95 8/18/17 12:00 183/95 8/18/17 11:59 57 14 100 8/18/17 11:59 57 14 8/18/17 11:59 57 14 100 8/18/17 11:59 57 14 01/13/17 11:56 185/99 01/13/17 11:56 185/99 01/13/17 11:54 69 01/13/17 11:54 69 97 01/13/17 11:54 69 01/13/17 11:54 69 97 01/13/17 11:51 186/109 01/13/17 11:51 186/109 01/13/17 11:49 72 01/13/17 11:49 72 01/13/17 11:49 72 175/95 98 01/13/17 11:49 72 175/95 98 01/13/17 11:49 36.0 71 20 175/95 (116) 97 Mask 10 Laboratory Results Last 24 Hours Test 01/13/17 22:52 Urine Color YELLOW Urine Appearance CLEAR Urine pH 7.0 Urine Specific [place] 1.015 Urine Protein NEG Urine Glucose (UA) NEG Urine Ketones NEG Urine Occult Blood NEG Urine Nitrite NEG Urine Bilirubin NEG Urine Urobilinogen NEG Urine Leukocyte Esterase NEG Urine WBC (Auto) 0 /hpf Urine RBC (Auto) 0-4 /hpf Urine Hyaline Casts (Auto) 0 /lpf Urine Epithelial Cells (Auto) 0-5 /lpf Urine Bacteria (Auto) NEG Assessment and Plan 61-year-old male with history coronary disease and difficult to control hypertension status post left shoulder surgery, POD #1 For his hypertension, still remains undercontrolled. Will remain on lisinopril 20 twice a day Coreg 25 twice a day Lasix 20 once a day with the addition of norvasc 10 mg PO daily to be prescribed on discharge. We'll use hydralazine when necessary for blood pressure control and more so attempt to control his pain as a means to control his hypertension. Stable for discharge from medical standpoint. For dyslipidemia and secondary cardiac risk prevention will continue atorvastatin and consider reinstituting Plavix as soon as orthopedic believes it 's possible DVT prevention is early ambulation
[2017-01-14] MEDS: POTASSIUM CHLORIDE INJ 10 MEQ in SODIUM CHLORIDE 0.9% 1000ML 1,000 ML IV SCH (11:21)
[2017-01-14 11:49] VITALS: O2SAT 97
[2017-01-14 12:07] VITALS: BP 148/83; PULSE 70; TEMP 36.9; O2SAT 97
--- NOTE | 2017-01-14 12:26 | PROGRESS NOTE ---
DATE: 01/14/2017 CHIEF COMPLAINT: Status post left shoulder arthroscopy with postoperative hypertension. PROGRESS: Anant was seen and examined at bedside today. Overall, he is doing fairly well. It seems his pain is controlled. He seems comfortable, but if anything touches his arm he seems to have a lot of pain. [facility] by [facility] this morning and he was started on Norvasc. His blood pressure is better controlled. He was catheterized last night, but he has been voiding some on his own as well. PHYSICAL EXAMINATION: LEFT ARM: The dressing is clean and dry. His left arm is in an arm sling. I am unable to touch his shoulder or his hand because it causes severe pain. I am able to get him to wiggle his fingers. VITAL SIGNS: Currently still showing to be a little bit hypertensive. His current blood pressure is 143/83 and he is breathing on 3 liters nasal cannula at 98%, but he has known COPD. He is voiding some on his own and some with the help of the catheter. IMPRESSION: 1. Status post left shoulder arthroscopy. 2. Postoperative hypertension. PLAN: He was seen by the medical team this morning. They recommended continuing the atorvastatin and continuing the Plavix. They also started him on Norvasc 10 mg daily. He has an appointment to follow up with his primary care physician in 2 weeks. I gave him a script for the Norvasc. He is going to get up and ambulate around a little bit and if his oxygen saturations are okay, I will go ahead and discharge him to home.
--- NOTE | 2017-01-14 14:19 | DISCHARGE SUMMARY ---
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 PROCEDURE: Left shoulder arthroscopy with extensive debridement on 01/13/2017. Surgeon was Dr. Raheem Knox. DISCHARGE INSTRUCTIONS: 1. Norvasc 10 mg daily until follow-up appointment with primary care physician, hydrocodone 10/325 every 4 hours as needed for pain, Lasix 20 mg daily, Plavix 75 mg daily, Coreg 25 mg twice a day, Lipitor 80 mg at night, aspirin 81 mg daily, lisinopril 20 mg twice a day, Restoril 30 mg at night 2. Follow up with Dr. Knox in 2 weeks. 3. Call the office of Dr. Knox with any questions or concerns. HOSPITAL COURSE: Anant is a pleasant 61-year-old male who presented to my office 1 year after open rotator cuff repair at an outside institution. He was having constant severe shoulder pain. I diagnosed him with arthrofibrosis of the shoulder, possible re-rupture of the cuff and he elected to undergo arthroscopy. On 01/13/2017 he arrived at [facility] and underwent the above procedure without complications. Postoperatively, he was having a lot of hypertension and anesthesia wanted him kept overnight. The medical service was also consulted. His hospital course was uneventful. On postop day #1, his pain was relatively well controlled. He does use a lot of pain medications, but he seemed to be resting comfortably. He was seen by the medical team. He continued to have a lot of hypertension and they recommended starting Norvasc 10 mg daily. He scheduled a followup with his primary care physician in 2 weeks and he will follow up with him then. I will see him in the office in 2 weeks.
== END 2017-01-14 12:29 | disposition home or self-care (01) | DRG 502 ==
LOC: C.ACU 06:14 → ENRESERV 13:41 → C.3E 14:13
PROVIDERS: ADMIT Orthopaedic Surgery; ATTEND Orthopaedic Surgery
PROC: 0LM20ZZ Reattachment of Left Shoulder Tendon, Open Approach (ICD-10-PCS; principal; 2017-01-13 09:05)
PROC: 0LN24ZZ Release Left Shoulder Tendon, Percutaneous Endoscopic Approach (ICD-10-PCS; principal; 2017-01-13 09:05)
PROC: 0LN80ZZ Release Left Hand Tendon, Open Approach (ICD-10-PCS; principal; 2017-01-13 09:05)
DX: M75.02 Adhesive capsulitis of left shoulder (principal); M75.22 Bicipital tendinitis, left shoulder; M65.342 Trigger finger, left ring finger; I10 Essential (primary) hypertension; I25.10 Atherosclerotic heart disease of native coronary artery without angina pectoris; E78.5 Hyperlipidemia, unspecified; Z79.899 Other long term (current) drug therapy; Z79.02 Long term (current) use of antithrombotics/antiplatelets; Z95.5 Presence of coronary angioplasty implant and graft; F17.200 Nicotine dependence, unspecified, uncomplicated